=== PATIENT | male | born 1980 | race American Indian/Alaskan Native ===

== ENCOUNTER 2020-07-24 14:56 | Emergency (ER) | payer OTHER ==
[2020-07-24] MEDS ORDERED: IBUPROFEN 800 MG TAB PO ONE (15:11)
[2020-07-24] MEDS ORDERED: HYDROcodone/ACETAMINOPHEN 5-325 MG TAB PO ONE (15:11)
--- NOTE | 2020-07-24 15:58 | Emergency Department Report ---
ED Neck Pain/Injury HPI - General Chief Complaint: Extremity Injury, Upper Stated Complaint: LEFT SHOULDER PAIN/WORK RELATED Time Seen by Provider: 07/24/20 15:04 Mode of arrival: Wheelchair Limitations: No Limitations - History of Present Illness Initial Comments: Chief complaint: "My neck hurt." HPI: This is a 40-year-old male with history of hypertension who presents after blunt trauma to the upper back and neck. 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 During an operation, a large heavy garage door fell onto the posterior upper neck and back. He has 7 out of 10 achy pain worse with movement. No other injuries. Pain became more evident after he completed the operation. Patient did have several neck injuries "fingers" during college football days. However he has not had neck pain since that time. MD Complaint: neck pain, neck injury, upper back pain -: Sudden, This afternoon Place: work Radiation: left lateral, upper back Severity: moderate Severity scale (0 -10): 7 Quality: aching Consistency: constant Improves With: none Worsens With: movement of neck Context: direct blow Associated Symptoms: none Treatments Prior to Arrival: none - Related Data Previous Rx's Medication Instructions Recorded Last Taken Type Cyclobenzaprine [Flexeril] 10 mg PO TID PRN #30 tablet 07/24/20 Unknown Rx HYDROcodone/APAP 5-325 [[place] 1 each PO Q6HR PRN #15 tablet 07/24/20 Unknown Rx 5/325] Ibuprofen [Motrin 400 MG tab] 400 mg PO TID 5 Days #15 tablet 07/24/20 Unknown Rx Allergies Allergy/AdvReac Type Severity Reaction Status Date / Time No Known Allergies Allergy Unverified 07/24/20 15:02 ED Review of Systems ROS: Stated complaint: LEFT SHOULDER PAIN/WORK RELATED Other details as noted in HPI Constitutional: denies: fever Respiratory: denies: cough, shortness of breath Cardiovascular: denies: chest pain Gastrointestinal: denies: abdominal pain, nausea, vomiting Musculoskeletal: back pain Neurological: denies: headache, weakness ED Past Medical Hx - Past Medical History Previous Medical History?: Yes Hx Hypertension: Yes - Surgical History Past Surgical History?: Yes Additional Surgical History: hernia repair - Social History Smoking Status: Never Smoker - Medications Home Medications: Home Medications Medication Instructions Recorded Confirmed Last Taken Type Cyclobenzaprine [Flexeril] 10 mg PO TID PRN #30 tablet 07/24/20 Unknown Rx HYDROcodone/APAP 5-325 [[place] 1 each PO Q6HR PRN #15 tablet 07/24/20 Unknown Rx 5/325] Ibuprofen [Motrin 400 MG tab] 400 mg PO TID 5 Days #15 tablet 07/24/20 Unknown Rx ED Physical Exam - General Limitations: No Limitations General appearance: alert, in no apparent distress - Head Head exam: Present: atraumatic, normocephalic - Eye Eye exam: Present: normal appearance - ENT ENT exam: Present: mucous membranes moist - Neck Neck exam: Present: normal inspection, full ROM. Absent: tenderness, meningismus - Respiratory Respiratory exam: Present: normal lung sounds bilaterally. Absent: respiratory distress, wheezes, rales, rhonchi, stridor - Cardiovascular Cardiovascular Exam: Present: regular rate, normal rhythm, normal heart sounds. Absent: systolic murmur, diastolic murmur, rubs, gallop - GI/Abdominal GI/Abdominal exam: Present: soft, normal bowel sounds. Absent: distended, tenderness, guarding - Rectal Rectal exam: Present: deferred - Extremities Exam Extremities exam: Present: normal inspection - Back Exam Back exam: Present: other (Left trapezius left rhomboid: Mild tenderness without bruising) - Neurological Exam Neurological exam: Present: alert, oriented X3 - Psychiatric Psychiatric exam: Present: normal affect, normal mood - Skin Skin exam: Present: warm, dry, intact, normal color. Absent: rash ED Course Vital Signs 07/24/20 14:58 Temperature 98 F Pulse Rate 68 Respiratory 18 Rate Blood Pressure 157/96 O2 Sat by Pulse 98 Oximetry ED Medical Decision Making - Radiology Data Radiology results: report reviewed Radiographs cervical spine 4 views: No acute findings according to radiologist Gary León MD Alignment is normal. There is no prevvertebral soft tissue swelling. Vertebral body height and disc space height is maintained. - Medical Decision Making Blunt trauma to the neck and upper back: Diagnosis contusion bony injury. Patient received prescription for [place] ibuprofen and Flexeril. Patient r eceived p.o. analgesia in the emergency department. Both upper extremity neurovascular intact. Critical care attestation.: If time is entered above; I have spent that time in minutes in the direct care of this critically ill patient, excluding procedure time. ED Disposition Clinical Impression: Blunt trauma of neck, Neck contusion, Back contusion Disposition: TO HOME OR SELFCARE Is pt being admited?: No Does the pt Need Aspirin: No Condition: Stable Instructions: Contusion, [id number], Neck Contusion Prescriptions: Cyclobenzaprine [Flexeril] 10 mg PO TID PRN #30 tablet PRN Reason: Muscle Spasm Ibuprofen [Motrin 400 MG tab] 400 mg PO TID 5 Days #15 tablet HYDROcodone/APAP 5-325 [[place] 5/325] 1 each PO Q6HR PRN #15 tablet PRN Reason: Pain Referrals: SHERLY HUGHES MD [Staff Physician] - 3-5 Days
--- NOTE | 2020-07-24 15:59 | XRay Report ---
CERVICAL SPINE 4 VIEWS INDICATION: neck pain blunt trauma. COMPARISON: No relevant prior imaging study available. FINDINGS: Alignment is normal. There is no prevertebral soft tissue swelling. Vertebral body height and disc sp phu height is maintained. IMPRESSION: 1. No acute findings. Signer Name: Gary Rutledge MD Signed: 07/24/2020 3:52 PM Workstation Name: [id number]
[2020-07-24 16:44] VITALS: BP 164/104
== END 2020-07-24 16:15 | disposition home or self-care (01) ==
LOC: ED 14:56
DX: S10.93XA Contusion of unspecified part of neck, initial encounter (principal); S20.229A Contusion of unspecified back wall of thorax, initial encounter; S19.80XA Other specified injuries of unspecified part of neck, initial encounter; I10 Essential (primary) hypertension; Z79.899 Other long term (current) drug therapy; Z98.890 Other specified postprocedural states; X58.XXXA Exposure to other specified factors, initial encounter; Y93.89 Activity, other specified; Y92.89 Other specified places as the place of occurrence of the external cause; Y99.8 Other external cause status
CPT/HCPCS: 72040